=== PATIENT | female | born 1960 | race Caucasian/White ===

== ENCOUNTER 2022-11-03 11:43 | Outpatient (OUT) | payer OTHER, SELFPAY ==
--- NOTE | 2022-11-03 11:59 | XR_ITS ---
The [address] [address] Patient Name: CLARITZA NOBLE MRN: [id number] date: 1960 Sex: F Assigned Patient Location: [facility] Current Patient Location: RAD Accession/Order Number: [id number] Exam Date: 11/03/2022 11:50 Report Date: 11/03/2022 12:23 At the request of: ADILSON GOMEZ Procedure: XR hip RT min 2V PROCEDURE: XR hip RT min 2V DATE: 11/03/2022 10:50 AM CDT COMPARISONS: CT abdomen and pelvis 08/27/2013. CLINICAL INDICATION: Acute right hip pain M25.551 FINDINGS: There is no evidence of fractures or other acute osseous abnormalities. Slight superior lateral acetabular spurring, slightly better seen than on 08/27/2013. This may represent some early degenerative changes of this right hip. No other osseous abnormalities identified. IMPRESSION: Findings as discussed above. . Electronically authenticated by: DARLENE VILLELA Date: 11/03/2022 12:23
== END 2022-11-03 11:44 ==
LOC: RAD 11:48
PROVIDERS: PCP Nurse Practitioner; Visit Provider Nurse Practitioner
DX: M25.551 Pain in right hip (principal)
CPT/HCPCS: 73502

== ENCOUNTER 2023-09-29 11:16 | Outpatient (REF) | payer OTHER, SELFPAY ==
[2023-09-29 16:00] LABS: C. Difficile PCR POSITIVE (NEGATIVE)
== END 2023-09-29 11:17 | disposition home or self-care (01) ==
LOC: LAB 11:16
PROVIDERS: PCP Nurse Practitioner; Visit Provider Family Medicine
DX: R19.7 Diarrhea, unspecified (principal)
CPT/HCPCS: 87045; 87046; 87427; 87493

== ENCOUNTER 2023-11-07 13:10 | Outpatient (REF) | payer OTHER, SELFPAY ==
[2023-11-07 15:41] LABS: C. Difficile PCR POSITIVE (NEGATIVE)
== END 2023-11-07 13:11 | disposition home or self-care (01) ==
LOC: LAB 13:10
PROVIDERS: PCP Nurse Practitioner; Visit Provider Family Medicine
DX: R19.7 Diarrhea, unspecified (principal)
CPT/HCPCS: 87493

== ENCOUNTER 2023-12-05 16:22 | Outpatient (REF) | payer OTHER, SELFPAY ==
--- OUTSIDE RECORDS SUMMARY | 2023-12-05 16:31 | XMS_ITS | CCD ---
Author Organization [facility] Care Team Providers Care [place] Supervisor Name Role Phone ABILIO, DR CHITO Thibodeaux Attending Unavailable NADERER, DR CHITO Thibodeaux Consulting Unavailable NADERER, DR CHITO Thibodeaux Primary Care Unavailable NADERER, DR CHITO Thibodeaux Admitting Unavailable NADERER, DR CHITO Thibodeaux Consulting Unavailable NADERER, DR CHITO Thibodeaux Primary Care Unavailable NADERER, DR CHITO Thibodeaux Admitting Unavailable NADERER, DR CHITO Thibodeaux Attending Unavailable NADERER, DR CHITO Thibodeaux Consulting Unavailable NADERER, DR CHITO Thibodeaux Primary Care Unavailable NADERER, DR CHITO Thibodeaux Admitting Unavailable NADERER, DR CHITO Thibodeaux Attending Unavailable Problems Active Problems Problem Classification Problem Date Documented Da te Episodic/Chronic Disorders of lipid metabolism (4 sources) Hyperlipidemia, unspecified; Translations: [HYPERLIPIDEMIA UNSPECIFIED] Onset: 12-17-2020 Chronic Unclassified (3 sources) CONTACT W/AND (SUSP) EXPOS COVID-19; Translations: [CONTACT W/AND (SUSP) EXPOS COVID-19] Onset: 11-25-2021 Past or Other Problems Problem Classification Problem Date Documented Da te Episodic/Chronic Malaise and fatigue (1 source) Other fatigue; Translations: [OTHER FATIGUE] Onset: 07-07-2021 Episodic Other aftercare (4 sources) Other care home (current) drug therapy; Translations: [OTH CLIENT SUCCESS DIRECTOR CURRENT DRUG THERAPY] Onset: 07-06-2021 Episodic Residual codes; unclassified (1 source) Asymptomatic menopausal state; Translations: [ASYMPTOMATIC MENOPAUSAL STATE] Onset: 07-07-2021 Episodic Unclassified (1 source) CONTACT W/AND (SUSP) EXPOS COVID-19; Translations: [CONTACT W/AND (SUSP) EXPOS COVID-19] Onset: 11-24-2021 Results Test Name Value Interpretation Reference Range Facil ity Covid-19 PCR (CVDTBH)on 11-13 SARS-CoV-2 (COVID-19) RNA ZEENAT+probe Ql (Unsp spec) Not detected Normal NOT DETECTED [facility] Comment on above: Result Comment: This test is not yet approved or cleared by the [place] FDA. When there are no FDA-approved or cleared tests available, and other criteria are met, FDA can make tests available under an emergency access mechanism called an Emergency Use Authorization (EUA). The EUA for this test is supported by the Biology Manager of Health and Human Service's (HHS's) declaration that circumstances exist to justify the emergency use of in vitro diagnostics for the detection and/or diagnosis of the virus that causes COVID-19. This EUA will remain in effect (meaning this test can be used) for the duration of the COVID-19 declaration justifying emergency of IVDs, unless it is terminated or revoked by FDA (after which the test may no longer be used). When diagnostic testing is negative, the possibility of a false negative should be considered in the context of a patient's recent exposures and the presence of clinical signs and symptoms consistent with SARS-CoV-2. Performed By: #### C VDTB #### [facility] [address] [place] [address] Dr. Karlee Sanchez CBC AUTO DIFFon 07-06-2021 BASO # 0.1 103/ul Normal 0.0-0.1 [facility] Comment on above: Performed By: #### C BC #### [facility] [address] [place] [address] Dr. Karlee Sanchez Basophils/100 WBC (Bld) 1.1 % Normal 0.2-2.0 [facility] Comment on above: Performed By: #### C BC #### [facility] [address] [place] [address] Dr. Karlee Sanchez EO # 0.1 103/ul Normal 0.0-0.7 [facility] Comment on above: Performed By: #### C BC #### [facility] [address] [place] [address] Dr. Karlee Sanchez Eosinophils/100 WBC (Bld) 2.9 % Normal 0.9-7.0 [facility] Comment on above: Performed By: #### C BC #### [facility] [address] [place] [address] Dr. Karlee Sanchez Erythrocyte distribution width (RBC) [Ratio] 13.0 % Normal 11.0-15.0 [facility] Comment on above: Performed By: #### C BC #### [facility] [address] [place] [address] Dr. Karlee Sanchez Hematocrit (Bld) [Volume fraction] 35.2 % Critically low 36.0-48.0 [facility] Comment on above: Performed By: #### C BC #### [facility] [address] [place] [address] Dr. Karlee Sanchez Hemoglobin (Bld) [Mass/Vol] 11.5 g/dL Critically low 12.0-16.0 [facility] Comment on above: Performed By: #### C BC #### [facility] [address] [place] [address] Dr. Karlee Sanchez IG # 0.02 10e3/ul Normal 0.00-0.03 [facility] Comment on above: Performed By: #### C BC #### [facility] [address] [place] [address] Dr. Karlee Sanchez IG % 0.4 % Normal 0.0-0.5 [facility] Comment on above: Performed By: #### C BC #### [facility] [address] [place] [address] Dr. Karlee Sanchez LYMPH # 1.4 103/ul Normal 1.2-3.8 [facility] Comment on above: Performed By: #### C BC #### [facility] [address] [place] [address] Dr. Karlee Sanchez Lymphocytes/100 WBC (Bld) 30.3 % Normal 20.5-60.0 [facility] Comment on above: Performed By: #### C BC #### [facility] [address] [place] [address] Dr. Karlee Sanchez MANUAL DIFF REQ NO Normal [facility] Comment on above: Performed By: #### C BC #### [facility] [address] [place] [address] Dr. Karlee Sanchez MCH (RBC) [Entitic mass] 33.3 pg Normal 26.7-34.0 [facility] Comment on above: Performed By: #### C BC #### [facility] [address] [place] [address] Dr. Karlee Sanchez MCHC (RBC) [Mass/Vol] 32.7 g/dL Normal 29.9-35.2 [facility] Comment on above: Performed By: #### C BC #### [facility] [address] [address] [address] Karlee Sanchez MCV (RBC) [Entitic vol] 102.0 fL Critically high 81.0-99.0 [facility] Comment on above: Performed By: #### C BC #### [facility] [address] [place] [address] Dr. Karlee Sanchez MONO # 0.6 103/ul Normal 0.3-0.8 [facility] Comment on above: Performed By: #### C BC #### [facility] [address] [place] [address] Dr. Karlee Sanchez Monocytes/100 WBC (Bld) 12.8 % Critically high 1.7-12.0 [facility] Comment on above: Performed By: #### C BC #### [facility] [address] [place] [address] Dr. Karlee Sanchez NEUT # 2.3 103/ul Normal 1.4-6.5 [facility] Comment on above: Performed By: #### C BC #### [facility] [address] [place] [address] Dr. Karlee Sanchez Neutrophils/100 WBC (Bld) 52.5 % Normal 43.0-75.0 [facility] Comment on above: Performed By: #### C BC #### [facility] [address] [place] [address] Dr. Karlee Sanchez Platelet mean volume (Bld) [Entitic vol] 8.7 fL Critically low 9.5-13.5 [facility] Comment on above: Performed By: #### C BC #### [facility] [address] [place] [address] Dr. Karlee Sanchez PLT 281 103/ul Normal 150-450 [facility] Comment on above: Performed By: #### C BC #### [facility] [address] [place] [address] Dr. Karlee Sanchez RBC 3.45 106/ul Critically low 4.20-5.40 [facility] Comment on above: Performed By: #### C BC #### [facility] [address] [place] [address] Dr. Karlee Sanchez WBC 4.5 103/ul Normal 4.0-11.0 [facility] Comment on above: Performed By: #### C BC #### [facility] [address] [place] [address] Dr. Karlee Sanchez FERRITINon 07-06-2021 Ferritin [Mass/Vol] 360.0 ng/mL Critically high 11.1-264.0 [facility] Comment on above: Performed By: #### V ITAD, IRON, FERR, VITB12 #### [facility] [address] [place] [address] Dr. Karlee Sanchez IRONon 07-06-2021 Iron [Mass/Vol] 67.0 ug/dL Normal 37.0-170.0 [facility] Comment on above: Performed By: #### V ITAD, IRON, FERR, VITB12 #### [facility] [address] [place] [address] Dr. Karlee Sanchez LIVER PROFILEon 07-06-2021 Albumin [Mass/Vol] 4.1 g/dL Normal 3.5-5.0 [facility] Comment on above: Performed By: #### L IVER, TSH, BMP #### [facility] [address] [place] [address] Dr. Karlee Sanchez Albumin/Globulin [Mass ratio] 1.1 {ratio} Normal [facility] Comment on above: Performed By: #### L IVER, TSH, BMP #### [facility] [address] [place] [address] Dr. Karlee Sanchez ALP [Catalytic activity/Vol] 70 U/L Normal 38-126 [facility] Comment on above: Performed By: #### L IVER, TSH, BMP #### [facility] [address] [address] [address] Karlee Sanchez ALT [Catalytic activity/Vol] 40 U/L Normal 9-52 [facility] Comment on above: Performed By: #### L IVER, TSH, BMP #### [facility] [address] [place] [address] Dr. Karlee Sanchez AST [Catalytic activity/Vol] 25 U/L Normal 14-36 [facility] Comment on above: Performed By: #### L IVER, TSH, BMP #### [facility] [address] [place] [address] Dr. Karlee Sanchez BILI, CONJUGATED 0.2 mg/dL Normal 0.0-0.3 [facility] Comment on above: Performed By: #### L IVER, TSH, BMP #### [facility] [address] [place] [address] Dr. Karlee Sanchez Bilirubin [Mass/Vol] 0.8 mg/dL Normal 0.2-1.3 [facility] Comment on above: Performed By: #### L IVER, TSH, BMP #### [facility] [address] [place] [address] Dr. Karlee Sanchez Globulin (S) [Mass/Vol] 3.7 g/dL Normal [facility] Comment on above: Performed By: #### L IVER, TSH, BMP #### [facility] [address] [place] [address] Dr. Karlee Sanchez Protein [Mass/Vol] 7.8 g/dL Normal 6.1-8.2 [facility] Comment on above: Performed By: #### L IVER, TSH, BMP #### [facility] [address] [place] [address] Dr. Karlee Sanchez PROF CHEM 8 (BAS METB)on Anion gap [Moles/Vol] 10.6 mmol/L Normal [facility] Comment on above: Performed By: #### L IVER, TSH, BMP #### [facility] [address] [address] [address] Karlee Sanchez Calcium [Mass/Vol] 9.2 mg/dL Normal 8.4-10.2 [facility] Comment on above: Performed By: #### L IVER, TSH, BMP #### [facility] [address] [address] [address] Karlee Sanchez Chloride [Moles/Vol] 102 mmol/L Normal 98-107 [facility] Comment on above: Performed By: #### L IVER, TSH, BMP #### [facility] [address] [address] [address] Karlee Sanchez CO2 [Moles/Vol] 28.2 mmol/L Normal 22.0-30.0 [facility] Comment on above: Performed By: #### L IVER, TSH, BMP #### [facility] [address] [place] [address] Dr. Karlee Sanchez Creatinine [Mass/Vol] 1.22 mg/dL Critically high 0.52-1.04 [facility] Comment on above: Performed By: #### L IVER, TSH, BMP #### [facility] [address] [address] [address] Karlee Sanchez EGFR-AF GABONESE 54 mL/min/1.73m2 Critically low >=60 [facility] Comment on above: Performed By: #### L IVER, TSH, BMP #### [facility] [address] [address] [address] Karlee Sanchez EGFR-NON AF GABONESE 45 mL/min/1.73m2 Critically low >=60 [facility] Comment on above: Performed By: #### L IVER, TSH, BMP #### [facility] [address] [address] [address] Karlee Sanchez Glucose [Mass/Vol] 109 mg/dL Critically high 74-106 [facility] Comment on above: Performed By: #### L IVER, TSH, BMP #### [facility] [address] [address] [address] Karlee Sanchez Potassium [Moles/Vol] 3.8 mmol/L Normal 3.4-5.0 [facility] Comment on above: Performed By: #### L IVER, TSH, BMP #### [facility] [address] [place] [address] Dr. Karlee Sanchez Sodium [Moles/Vol] 137 mmol/L Normal 137-145 [facility] Comment on above: Performed By: #### L IVER, TSH, BMP #### [facility] [address] [place] [address] Dr. Karlee Sanchez Urea nitrogen [Mass/Vol] 16.0 mg/dL Normal 7.0-17.0 [facility] Comment on above: Performed By: #### L IVER, TSH, BMP #### [facility] [address] [place] [address] Dr. Karlee Sanchez Urea nitrogen/Creatinine [Mass ratio] 13.1 mg/mg Normal [facility] Comment on above: Performed By: #### L IVER, TSH, BMP #### [facility] [address] [place] [address] Dr. Karlee Sanchez TSHon 07-06-2021 TSH 2.764 uIU/mL Normal 0.470-4.680 [facility] Comment on above: Performed By: #### L IVER, TSH, BMP #### [facility] [address] [place] [address] Dr. Karlee Sanchez TSH RANGE SEE BELOW Normal [facility] Comment on above: Result Comment: <0.3 4 UIU/ml HYPERTHYROID 0.34-5.60 UIU/ml EUTHYROID >5.60 UIU/ml HYPOTHYROID Performed By: #### L IVER, TSH, BMP #### [facility] [address] [place] [address] Dr. Karlee Sanchez VITAMIN B12on 07-06-2021 Cobalamin (Vitamin B12) [Mass/Vol] 562.0 pg/mL Normal 239.0-931.0 [facility] Comment on above: Performed By: #### V ITAD, IRON, FERR, VITB12 #### [facility] [address] [place] [address] Dr. Karlee Sanchez VITAMIN D 25 OHon 07-06-2021 VIT D 25-OH 81.4 ng/mL Normal [facility] Comment on above: Performed By: #### V ITAD, IRON, FERR, VITB12 #### [facility] [address] [place] [address] Dr. Karlee Sanchez VIT D RANGES SEE BELOW Normal [facility] Comment on above: Result Comment: <20 ng/mL Vit D deficient 20 - <30 ng/mL Vit D insufficient 30 - 100 ng/mL Vit D sufficient >100 ng/mL Potential Toxicity Performed By: #### V ITAD, IRON, FERR, VITB12 #### [facility] [address] [address] [address] Karlee Sanchez LIPID PROFILEon 12-17-2020 CHOL-HDL RATIO NORM SEE BELOW Normal [facility] Comment on above: Result Comment: 3.3 - 4.4 LOW RISK 4.4 - 7.1 AVERAGE RISK 7.1 - 11.0 MODERATE RISK >11.0 HIGH RISK Performed By: #### L IPID #### [facility] [address] [place] [address] Lincoln Josefina Cholesterol [Mass/Vol] 167 mg/dL Normal <=200 [facility] Comment on above: Performed By: #### L IPID #### [facility] [address] [place], [place] [id number] [place] Josefina Cholesterol in HDL [Mass/Vol] 64 mg/dL Normal [facility] Comment on above: Performed By: #### L IPID #### [facility] [address] [place] [address] Lincoln Josefina Cholesterol in LDL [Mass/Vol] 57.6 mg/dL Normal [facility] Comment on above: Performed By: #### L IPID #### [facility] [address] [place], [place] [id number] Lincoln Josefina Cholesterol.total/C holesterol in HDL [Mass ratio] 2.6 {ratio} Normal [facility] Comment on above: Performed By: #### L IPID #### [facility] [address] [place], [place] [id number] [place] Josefina HDL NORMAL > or = 60 mg/dl - LO W CARDIOVASCULAR RISK <40 mg/dl - HIGH CARDIOVASCULAR RISK Normal [facility] Comment on above: Performed By: #### L IPID #### [facility] [address] [place], [place] [address] Lincolnhood Rocha LDL CALC NORMAL SEE BELOW Normal [facility] Comment on above: Result Comment: <100 mg/dl OPTIMAL 100 - 129 mg/dl NEAR OR ABOVE OPTIMAL 130 - 159 mg/dl BORDERLINE HIGH 160 - 189 mg/dl HIGH >190 mg/dl VERY HIGH Performed By: #### L IPID #### [facility] [address] [place], [place] [address] Lincoln Rocha Triglyceride [Mass/Vol] 227 mg/dL Critically high <=150 [facility] Comment on above: Performed By: #### L IPID #### [facility] [address] [place], [place] [address] Lincoln Rocha VLDL CALC 45.4 mg/dL Normal [facility] Comment on above: Performed By: #### L IPID #### [facility] [address] [place], [place] [address] Lincoln Rocha Encounters Encounter Date Encounter Type Care Provider Facility Start: 11-24-2021 End: 11-24-[address] CHITO KNOX Facility:[facility] Start: 07-06-2021 End: 07-07-[address] CHITO KNOX Facility:[facility] Start: 12-17-2020 End: 12-18-[address] CHITO KNOX Facility:[facility] Payers Date Payer Category Payer Unknown [id number] 07.01.83 [id number] 1960 Unknown [id number] 07.01.83 [id number] 1960 Unknown [id number] 07.01.83 [id number] Unknown [id number] Summary Purpose Family History No Family History Records Found Advance Directives No Advanced Directives Records Found Additional Source Comments INFORMATION SOURCE (unrecogn ized section and content) DATE CREATED AUTHOR 12/02/2021 [facility]DS PERTAINING TO PATIENTS WHO ARE OR HAVE BEEN ENROLLED IN A CHEMICAL DEPENDENCY/SUBSTANCEABUSE PROGRAM, SOME INFORMATION MAY BE OMITTED. This clinical summary was aggregated from multiple sources. Caution should be exercised in using it in the provision of clinical care. This summary normalizes information from multiple sources, and as a consequence, information in this document may materially change the coding, format and clinical context of patient data. In addition, data may be omitted in some cases. CLINICAL DECISIONS SHOULD BE BASED ON THE PRIMARY CLINICAL RECORDS. [facility] [place]. provides no warranty or guarantee of the accuracy or completeness of information in this document.
[2023-12-06 15:09] LABS: C. Difficile PCR NEGATIVE (NEGATIVE)
== END 2023-12-05 16:23 | disposition home or self-care (01) ==
LOC: LAB 16:22
PROVIDERS: PCP Nurse Practitioner; Visit Provider Family Medicine
DX: A04.72 Enterocolitis due to Clostridium difficile, not specified as recurrent (principal)
CPT/HCPCS: 87493